=== PATIENT | female | born 1965 | race Caucasian/White ===

== ENCOUNTER 2016-07-30 16:12 | Emergency (ER) | payer MEDICARE, OTHER ==
--- NOTE | ~2016-07-30 | CR72 ---
[facility] A Service of [facility] & [facility] RADIOLOGY TEXT RESULTS PATIENT: PARKER FLORES LOCATION: [facility] : 65 UNIT #: [id number] AGE: [address]: Da Chand MD SEX: F ORDER DR: [id number] [facility] [address] [place], [place] [address] [id number] E MR#: [id number] Acc #: [id number] NAME: PARKER FLORES : 1965 SEX: F STUDY DATE/TIME: 07/30/2016 15:57 UNIT: [facility] ROOM: STUDY DESCRIPTION: CR Chest Single View Portable Attending Physician: Da Chand M.D. Ordering Physician: Da Chand M.D. Primary Care Physician: Primary Care Physician No MEDICAL IMAGING REPORT This report is preliminary unless electronic signature is present EXAM Portable chest, 07/30/2016 INDICATION Shortness of air, 4 days. FINDINGS A portable view of the chest was obtained. The heart size and vascularity are normal. There is minimal atelectasis in the right base. The bones are normal and the lungs are otherwise clear. IMPRESSION Minimal right base atelectasis, otherwise no active disease. Dictated by... Bon Soler M.D. THIS IS AN ELECTRONICALLY VERIFIED REPORT Bon Soler M.D. at 07/31/2016 9:22 AM KEMAR/benji TD: 07/31/2016 03:06 JOB #: [id number] MEDICAL IMAGING REPORT COPY
--- NOTE | ~2016-07-30 | EKG ---
PATIENT: PARKER FLORES UNIT #: [id number] Ventricular Rate: 112 BPM Atrial Rate: 112 BPM P-R Interval: 140 ms QRS Duration: 76 ms Q-T Interval: 336 ms QTC Calculation(Bezet): 458 ms P [place]: 59 degrees Calculated R [place]: 51 degrees Calculated T [place]: 40 degrees Diagnosis Line: Sinus tachycardia Diagnosis Line: Otherwise normal ECG Diagnosis Line: When compared with ECG of 25-JUN-2016 19:59, Diagnosis Line: No significant change was found Diagnosis Line: Confirmed by MABLE MEHTA MD ([id number]) on 07/31/2016 Diagnosis Line: 5:42:59 PM INTERPRETING MD: JANINE CHRISTIANSEN
[~2016-07-30 16:12] MED LIST: ACETAMINOPHEN PO; ACETAMINOPHEN650 M4 PO; ADVAIR 100-501 EAC1; ADVAIR 100-501 EAC1 IH; ADVAIR 100-501 EAC1 INH; ADVAIR 100-501 EACH IH; ADVAIR 250-501 EACH IH; AL-MAG HYDROX-S30 M1 PO; ALBUTEROL 0.5ML INH; ALBUTEROL MININEB NEB; ALBUTEROL17 GM INH; ASPIRIN EC81 M1; ASPIRIN81 M1 PO; ASPIRIN81 M2 PO; ASPIRIN81 MG PO; ATIVAN PO; ATIVAN0.5 M1 PO; ATIVAN2 M1 PO; AZITHROMYCIN250 MG PO; BENZONATATE PO; CATAPRES0.1 MG PO; COMBIVENT INH14.7 G1 IH; COMBIVENT RESPIM4 GM IH; COMBIVENT14.7 GM INH; DELTASONE20 MG PO; DOXYCYCLINE PO; DUONEB 2.5-0.5 M3 ML NEB; FLAGYL PO; HCTZ PO; HYDRALAZINE HCL10 MG PO; HYDRALAZINE HCL25 MG PO; HYDROCHLOROTHIA25 MG PO; KITABIS PA300 MG/5 M INH; LASIX PO; LEVAQUIN PO; LEVAQUIN750 M1 PO; LEVAQUIN750 MG PO; LOVENOX40 MG/0.4 INJ; MEDROL DOSEPAK4 MG DOB; MEDROL DOSEPAK4 MG PO; MUCINEX D ER T1 EAC1 PO; NORVASC PO; NORVASC10 MG PO; NYSTATIN15 G1 TP; NYSTATIN5 ML PO; OXYCODONE HCL5 M1 PO; OXYGEN; OXYGEN INH; PERCOCET 5/321 UDTAB PO; PERCOCET5/325 PO; PERFOROMIS20 MCG/2 M IH; PREDNISONE PO; PREDNISONE10 MG PO; PROAIR HFA8.5 GM IH; PROAIR HFA8.5 GM INH; PROAIR RESPICL90 MCG INH; PROBIOTIC250 MG PO; PROTONIX PO; PULMICORT0.5 MG/2 M IH; SINGULAIR PO; SOLU-MEDRO40 MG/1 ML INJ; SYMBICORT INH; TAMIFLU75 M1 PO; VANCOMYCIN750 MG/150 IV; VIBRAMYCIN100 M1 PO; [UNRECOGNIZED DRUG - OTHER] NEB
[2016-07-30 16:21] LABS: POC - CKMB 2.1 ng/mL (0.0-7.9); POC - TROPONIN <0.05 ng/mL (<=0.05)
[2016-07-30 16:31] LABS: BASOPHIL% 0.4 % (0-2.5); DIFF IND NO; EOSINOPHIL# 0.2 X10e3 (0-0.7); EOSINOPHIL% 1.7 % (0.0-7.0); HEMOGLOBIN 11.4 gm/dL (12.0-16.0); LYMPHOCYTE% 16.4 % (17.0-45.0); MEAN CELL VOLUME 86.3 FL (83-96); MEAN CORPUSCULAR HEMOGLOBIN 27.2 PG (28-34); MEAN CORPUSCULAR HGB CONC 31.5 g/dL (30-36); MEAN PLATELET VOLUME 7.6 FL (6.5-11.5); MONOCYTE# 0.6 X10e3 (0-1.0); MONOCYTE% 4.7 % (3.0-12.0); NEUTROPHIL# 9.5 X10e3 (1.5-7.1); NEUTROPHIL% 76.8 % (40-75); PLATELET COUNT 231 X10e3 (140-420); RED BLOOD COUNT 4.18 X10e (3.90-5.30); RED CELL DISTRIBUTION WIDTH 18.4 % (11.0-15.5); WHITE BLOOD COUNT 12.4 X10e3 (4.0-10.5)
[2016-07-30 16:56] LABS: ALBUMIN SERUM 3.9 g/dL (3.5-5.0); ALKALINE PHOSPHATASE 117 U/L (32-92); ALT (SGPT) 34 U/L (10-40); AST (SGOT) 51 U/L (10-42); BILIRUBIN, DIRECT 0.1 mg/dL (0.0-0.2); BILIRUBIN,INDIRECT 0.6 mg/dL (0.0-0.9); BILIRUBIN,TOTAL 0.7 mg/dL (0.2-2.0); BLOOD UREA NITROGEN 8 mg/dL (9-23); CALCIUM SERUM 9.1 mg/dL (8.4-10.2); CARBON DIOXIDE 26 mmol/L (22-31); CHLORIDE 99 mmol/L (100-111); CREATININE SERUM 0.5 mg/dL (0.6-1.4); GLOM FILT RATE Estimated ABOVE60 mL/min (>60); GLUCOSE FASTING 112 mg/dL (70-110); POTASSIUM 3.7 mmol/L (3.5-5.1); PROTEIN TOTAL SERUM 7.6 g/dL (6.0-8.3); SODIUM 136 mmol/L (135-145)
== END 2016-07-30 20:20 | disposition home or self-care (01) ==
LOC: CED 16:12
PROVIDERS: Emergency Medicine
DX: J41.1 Mucopurulent chronic bronchitis (principal); J44.9 Chronic obstructive pulmonary disease, unspecified; Z88.1 Allergy status to other antibiotic agents; Z88.8 Allergy status to other drugs, medicaments and biological substances; Z79.82 Long term (current) use of aspirin; Z79.899 Other long term (current) drug therapy
CPT/HCPCS: 36415; 71010; 80048; 80076; 82553; 84484; 85025; 93005; 94640; 99284

== ENCOUNTER 2016-08-25 22:32 | Emergency (ER) | payer MEDICARE, OTHER ==
--- NOTE | ~2016-08-25 | EKG ---
PATIENT: PARKER FLORES UNIT #: [id number] Ventricular Rate: 101 BPM Atrial Rate: 101 BPM P-R Interval: 142 ms QRS Duration: 80 ms Q-T Interval: 368 ms QTC Calculation(Bezet): 477 ms P [place]: 62 degrees Calculated R [place]: 31 degrees Calculated T [place]: 41 degrees Diagnosis Line: Sinus tachycardia Diagnosis Line: Right atrial enlargement Diagnosis Line: Borderline ECG Diagnosis Line: No previous ECGs available Diagnosis Line: Confirmed by ISA JANE MD ([id number]) on 08/26/2016 Diagnosis Line: 10:09:22 PM INTERPRETING MD: BUCK CHRISTIANSEN
--- NOTE | ~2016-08-25 | CR72 ---
[facility] A Service of [facility] & [facility] RADIOLOGY TEXT RESULTS PATIENT: PARKER FLORES LOCATION: [facility] : 65 UNIT #: [id number] AGE: [address]: Da Chand MD SEX: F ORDER DR: [id number] [facility] [address] [place], [place] [address] [id number] E MR#: [id number] Acc #: [id number] NAME: PARKER FLORES : 1965 SEX: F STUDY DATE/TIME: 08/25/2016 20:48 UNIT: [facility] ROOM: STUDY DESCRIPTION: CR Chest Single View Portable Attending Physician: Da Chand M.D. Ordering Physician: Da Chand M.D. Primary Care Physician: Primary Care Physician No MEDICAL IMAGING REPORT This report is preliminary unless electronic signature is present EXAM Portable chest. HISTORY Cough, congestion, shortness of air beginning 4 days ago. FINDINGS Portable view of the chest demonstrates low lung volumes. There is cardiomegaly with prominence of the pulmonary vascular and interstitium which may reflect early CHF. No dense consolidation and no sizeable effusions. No invasive lines identified. The patient does appear to have a tracheostomy appliance in place. No pneumothorax. Dictated by... Dwain Medina M.D. THIS IS AN ELECTRONICALLY VERIFIED REPORT Dwain Medina M.D. at 08/26/2016 11:00 PM ANNELISE/benji TD: 08/26/2016 00:21 JOB #: [id number] MEDICAL IMAGING REPORT Page 1 of 1 COPY
[2016-08-25 20:44] LABS: BASOPHIL% 0.5 % (0-2.5); EOSINOPHIL# 0.2 X10e3 (0-0.7); EOSINOPHIL% 2.9 % (0.0-7.0); HEMATOCRIT 33.2 % (35.0-45.0); HEMOGLOBIN 10.7 gm/dL (12.0-16.0); LYMPHOCYTE# 1.7 X10e3 (1.0-3.5); MEAN CELL VOLUME 84.2 FL (83-96); MEAN CORPUSCULAR HGB CONC 32.1 g/dL (30-36); MEAN PLATELET VOLUME 7.9 FL (6.5-11.5); MONOCYTE# 0.5 X10e3 (0-1.0); MONOCYTE% 6.3 % (3.0-12.0); NEUTROPHIL# 4.8 X10e3 (1.5-7.1); NEUTROPHIL% 66.3 % (40-75); PLATELET COUNT 169 X10e3 (140-420); RED BLOOD COUNT 3.95 X10e (3.90-5.30); RED CELL DISTRIBUTION WIDTH 17.5 % (11.0-15.5); WHITE BLOOD COUNT 7.3 X10e3 (4.0-10.5)
[2016-08-25 20:47] LABS: DIFF IND NO
[2016-08-25 21:02] LABS: BUN/CREATININE RATIO 8.33; CALCIUM SERUM 8.4 mg/dL (8.4-10.2); CREATININE SERUM 0.6 mg/dL (0.6-1.4); GLOM FILT RATE Estimated 106.3 mL/min (>60)
[2016-08-25 21:11] LABS: POC - CKMB 1.3 ng/mL (0.0-7.9); POC - TROPONIN <0.05 ng/mL (<=0.05)
== END 2016-08-25 23:17 | disposition home or self-care (01) ==
LOC: CED 22:32
PROVIDERS: Emergency Medicine
DX: J41.1 Mucopurulent chronic bronchitis (principal); Z88.8 Allergy status to other drugs, medicaments and biological substances; Z79.899 Other long term (current) drug therapy; Z87.891 Personal history of nicotine dependence
CPT/HCPCS: 71010; 80048; 82553; 84484; 85025; 93005; 94640; 99284

== ENCOUNTER 2016-12-09 13:56 | Inpatient (IN) | payer MEDICARE, OTHER ==
[~2016-12-09] VITALS: Ht 162.6 cm; Wt 126.2 kg
--- NOTE | ~2016-12-09 | EKG ---
PATIENT: PARKER FLORES UNIT #: [id number] Ventricular Rate: 118 BPM Atrial Rate: 118 BPM P-R Interval: 154 ms QRS Duration: 76 ms Q-T Interval: 332 ms QTC Calculation(Bezet): 465 ms P [place]: 65 degrees Calculated R [place]: 40 degrees Calculated T [place]: 39 degrees Diagnosis Line: Sinus tachycardia Diagnosis Line: Low voltage QRS Diagnosis Line: Septal infarct , age undetermined Diagnosis Line: Abnormal ECG Diagnosis Line: When compared with ECG of 25-AUG-2016 21:22, Diagnosis Line: Septal infarct is now Present Diagnosis Line: Confirmed by ROBERT GARCIA MD ([id number]) on Diagnosis Line: 12/09/2016 5:11:37 PM INTERPRETING MD: JOSE CHRISTIANSEN
--- NOTE | ~2016-12-09 | HP ---
Unit #: [id number] #: [id number] Patient: PARKER FLORES [id number] [facility] [address] [place], [place] [address] [id number] I MR#: [id number] NAME: PARKER FLORES ROOM: [facility] Age: 51 Sex: F Admission Date: 12/09/2016 : 1965 Attending Physician: Juan Nash M.D. Primary Care Physician: Caro Atwood M.D. HISTORY AND PHYSICAL CHIEF COMPLAINT Shortness of breath. HISTORY OF PRESENT ILLNESS 51-year-old female who has vocal cord issues and has chronic tracheostomy, followed by [facility]NT. Approximately three weeks ago she fell and broke her leg with a very complicated fracture. She has been at [facility] and that has been surgically corrected. Apparently she had significant hypoxemia and with her repeated hospitalizations it was felt that she would benefit from AVAPS at night via her tracheostomy. This was arranged by [facility]. Unfortunately she has not been using it. She says the alarms keep going off. Apparently she was just discharged two days ago. She also had her trach changes because of inspissated secretions. She had increasing shortness of breath and presented here to the emergency room. Chest x-ray was unremarkable. CT angiogram was unremarkable. She was placed in the ICU for fear of possible needle for mechanical ventilatory support; however, that was not needed and in fact AVAPS was not even used because I was told we didn't have the appropriate adaptor. PAST MEDICAL HISTORY 1. 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 2. Hypertension. 3. Remote spontaneous pneumothorax. 4. Remote pulmonary embolism. 5. History of hypertension. 6. History of Pseudomonas tracheal bronchitis. MEDICATIONS AT HOME According to a med rec sheet, hydrocodone, nebulized bronchodilators with DuoNeb, Coreg, Effexor, lorazepam, oxycodone, and hydrocodone, Norvasc, Symbicort, aspirin, Zyban. ALLERGIES Lisinopril, morphine, vancomycin. SOCIAL HISTORY Remote smoker. She does live alone, but with a friend, but she says "he is always at work and I'm alone a lot." She is actually asking for possible rehab/penitentiary placement. FAMILY HISTORY Unit #: [id number] #: [id number] Patient: PARKER FLORES No familial lung disease. REVIEW OF SYSTEMS She still has thick tracheal secretions. No hemoptysis. No fever, chills, weight loss. No chest pain, palpitations, abdominal pain, melena, or hematochezia. She does have some nausea. No leg pain swelling. No focal weakness, paresthesias. She does have a boot in place. Limiting her mobility. PHYSICAL EXAMINATION GENERAL: Examination reveals the patient who is in no acute distress, sitting at the side of the bed. (1) oxygen. VITAL SIGNS: She is afebrile. Pulse is 112, respiratory rate 25, blood pressure 165/78. She is 5'4", 286, BMI is 49. HEENT: Pupils equal, round, reactive to light. Sclerae are anicteric. Head atraumatic. NECK: Supple. No supraclavicular or cervical adenopathy appreciated. She has a trach in place. CHEST: Equal breath sounds. No wheeze, stridor or consolidation. CARDIAC: Regular rate and rhythm. No pathologic murmur, rub or gallop. ABDOMEN: Soft, nontender. No hepatomegaly, rebound. EXTREMITIES: No clubbing, cyanosis or edema. She has a boot in place on the left. NEUROLOGIC: Grossly intact. No focal muscle or sensory deficits. DIAGNOSTIC STUDIES LABORATORY EXAMINATION: ABG - pH 7.45, pCO2 36, pO2 62, that was reported on room air. BUN is 6, creatinine 0.5. Lactic acid 2.6. INR normal. Cardiac enzymes normal. White blood cell count 10, hemoglobin 10.5, platelet count 266. Blood cultures were not performed. Sputum has been obtained and shows no organisms on gram stain, culture pending. IMAGING STUDIES: Chest x-ray unremarkable. CT angiogram unremarkable but it did have motion artifact. Distal PE cannot be ruled out but again my clinical suspicion is such it is virtually 0. The test was ordered by the ER. CARDIOLOGY STUDIES: EKG - sinus tachycardia. IMPRESSION 1. Possible acute on chronic respiratory failure, although not clearly documented. 2. Shortness of breath, possible anxiety component. 3. Noncompliance. 4. Chronic trach. 5. Chronic obstructive pulmonary disease. 6. History of Pseudomonas tracheobronchitis. 7. Hypertension. 8. Possible poor living conditions/noncompliance, possible contributing to her multiple hospitalizations. 9. Recent fall with leg fracture treated at [facility]. PLAN Maximize pulmonary function. I do not think she needs ICU observation. She will be transferred to Telemetry. Compliance has been stressed. We will ask her AVAPS to be brought in from home for her use, so we can observe her use and issues. We will also ask the [employer] to educate Unit #: [id number] #: [id number] Patient: PARKER FLORES. We will ask social service and supply planner to see the patient for possible rehab/long-term living conditions. Dictated by Juan Nash M.D. FROILAN/kedar TD: 12/10/2016 11:18 JOB #: [id number] CC: [facility] HISTORY AND PHYSICAL Page 1 of 1 X Juan Nash MD HISTORY AND PHYSICAL
--- NOTE | ~2016-12-09 | DS ---
Unit #: [id number] #: [id number] Patient: PARKER FLORES [id number] [address] [id number] [facility]. [place], [place] [address] [id number] I MR#: [id number] NAME: PARKER FLORES ROOM: 577 Age: 51 Sex: F Admission Date: 12/09/2016 : 1965 Discharge Date: 12/12/2016 Attending Physician: Juan Nash M.D. Primary Care Physician: Caro Atwood M.D. DISCHARGE SUMMARY DISCHARGE DIAGNOSES 1. Shortness of breath, multifactorial. 2. Chronic obstructive pulmonary disease with exacerbation. 3. Chronic respiratory failure with oxygen with exertion and at night. She is also on AVAPS at night, although she has been noncompliant. 4. Hypertension. 5. History of pseudomonas tracheal bronchitis, now sputum is normal merly. 6. Remote history of spontaneous pneumothorax. 7. Remote history of pulmonary embolism. DISCHARGE MEDICATIONS 1. Augmentin 875 mg twice a day for four more days. 2. Prednisone 40 mg daily for five days. 3. Wellbutrin 300 mg daily. 4. Effexor 75 mg daily. 5. Symbicort two puffs twice a day. 6. Nebulized bronchodilators as needed. 7. Ativan 0.5 mg t.i.d. p.r.n. 8. Coreg 3.125 mg twice a day. 9. Norvasc 10 mg daily. 10. Aspirin 81 mg daily. 11. Pepcid 20 mg twice a day. DIET Weight loss has been suggested. ACTIVITY Room air saturations were 95%, so it is safe to be off oxygen at rest but I have suggested oxygen with any exertion. She does have a portable system at home. She needs to use her AVAPS at night with sleep with oxygen in line and this has been discussed. Please note that [employer] has reviewed the machine use with her as well as checked the machine but she still is somewhat confused. I will ask the DME to talk to her again. DESCRIPTION OF HOSPITALIZATION The patient was admitted through the emergency room. There was some question in need for mask ventilation, and she was sent to the ICU. She actually never received any mask ventilation whatsoever and was transferred to the floor. She is not using her AVAPS at home. Please note, AVAPS was ordered by [facility]. She had a recent hospitalization with a fall and leg fracture. She has been noncompliant since discharge. AVAPS generally is very easy to use with no need to intervene with any of the settings, so I am not sure what the problem is. Unit #: [id number] #: [id number] Patient: PARKER FLORES It should easily be connected to her trach, turn the machine on and that should be it. Once again, we will have her [employer] to check the machine and educate the patient. The remainder of her hospitalization basically was maximizing her pulmonary function with IV steroids. Sputum grew normal merly. She will be discharged on her continued inhaled bronchodilators, controlling agents, a brief course of prednisone and antibiotics. She will follow up with Dr. Atwood for general medical care, Dr. Nash for her pulmonary needs, and [facility]NT as scheduled. Please note, she has been noncompliant with office followup. I believe transportation is a major issue for her. She did have some mild anemia with a hemoglobin of 10.5 and it was stable. I have suggested her followup with her primary physician for investigation if it has not already been performed. In the meantime, she will be continued on Pepcid. Dictated by... Juan Nash M.D. FROILAN/alla TD: 12/13/2016 10:31 JOB #: [id number] DISCHARGE SUMMARY Page 1 of 1 X Juan Nash MD X DISCHARGE SUMMARY
--- NOTE | ~2016-12-09 | CT16 ---
[facility] A Service of [facility] & [facility] RADIOLOGY TEXT RESULTS PATIENT: PARKER FLOERS LOCATION: [address] : 65 UNIT #: [id number] AGE: [address]: Juan Nash MD SEX: F ORDER DR: [id number] [facility] [address] [place], [place] [address] [id number] I MR#: [id number] Acc #: [id number] NAME: PARKER FLORES : 1965 SEX: F STUDY DATE/TIME: 12/09/2016 17:57 UNIT: [facility] ROOM: [facility] STUDY DESCRIPTION: CT Angio Chest for PE Attending Physician: Juan Nash M.D. Ordering Physician: Milton Reyna D.O. Primary Care Physician: Caro Atwood M.D. MEDICAL IMAGING REPORT This report is preliminary unless electronic signature is present EXAM CT angiography chest for PE. HISTORY Short of air. Chest pain today. COPD, TIA, trachea, acid reflux, C. diff, restless legs syndrome, heart valve abnormal. TECHNIQUE CT pulmonary angiography performed with intravenous administration of 100 mL Isovue-370. Study repeated due to initial poor timing of the contrast bolus. Three-dimensional reconstructions performed through the pulmonary arteries. This CT exam was performed with one or more of the following radiation dose reduction techniques: Automatic exposure control, adjustment of mA and/or kV according to patient size, and iterative reconstruction. COMPARISON 12/10/2015. FINDINGS The patient has a tracheostomy tube which appears satisfactorily positioned. There is no axillary, mediastinal or hilar adenopathy. The visualized thyroid is unremarkable. There is mild and stable cardiac enlargement. No pleural effusions. Fatty infiltration of liver unchanged. Limited view of gallbladder suggests gallstone. Similar appearance on prior study. There is no biliary ductal dilatation. The spleen, visualized portions of pancreas, adrenal glands and kidneys are unremarkable. No upper abdominal adenopathy. Esophagus and visualized stomach, small bowel and colon unremarkable. Assessment of the pulmonary parenchyma significantly degraded by respiratory motion artifact. Linear scarring or atelectasis in the bilateral upper lung zones. Similar appearance on prior study. There is a subtle increase in peripheral subpleural interstitial markings which could be in the upper lung zones [facility] A Service of [facility] RADIOLOGY TEXT RESULTS PATIENT: PARKER FLORES LOCATION: [facility] : 65 UNIT #: [id number] AGE: [address]: Juan Nash MD SEX: F ORDER DR: which could be in part artifactual due to motion and in part a reflection of mild interstitial edema. There are areas of linear and band-like atelectasis in the bilateral lung bases left greater than right also similar in appearance to prior study. No suspicious nodule. No dense airspace disease. Despite repetition of the examination, the study is nondiagnostic for complete assessment of pulmonary arteries. On the second group of images, there is no compelling evidence of central pulmonary emboli but there is extensive respiratory motion artifact degrading upper and lower lung zone evaluation more pronounced at the lower lung zones. Presence or absence of mid to lower lung zone segmental or subsegmental pulmonary emboli cannot be determined on basis of this examination. If the patient is a candidate for additional iodinated contrast material, additional repeat imaging could be considered. Alternatively ventilation-perfusion radionuclide lung scan could be considered. No aortic aneurysm or dissection suggested. The bony structures show degenerative changes in spine. No acute-appearing bony abnormality. IMPRESSION 1. Despite repetition of the examination, the study is nondiagnostic for complete assessment of the pulmonary arteries due to a combination of poor contrast bolus timing and extensive respiratory motion artifact. No central pulmonary emboli are seen but beyond the level of the proximal lobar and segmental pulmonary arteries, the study is felt to be nondiagnostic. Presence or absence of segmental or subsegmental pulmonary emboli particularly in the lower lung zones cannot be confidently evaluated on basis of this examination. If there is ongoing concern for pulmonary thromboembolic disease and if the patient is a candidate for additional iodinated contrast material, a second repeat examination could be considered. Alternatively ventilation-perfusion radionuclide lung scan could be considered. 2. No aortic aneurysm or dissection. 3. Stable mild cardiac enlargement. 4. Respiratory motion artifact degrades assessment of the pulmonary parenchyma. There is a subtle increase in fine linear interstitial markings in the periphery of the upper lung zones bilaterally. Some of this could be artifactual in nature and related to motion. The possibility of mild interstitial edema could be considered. 5. Areas of chronic linear scarring and atelectasis in the bilateral upper and lower lung zones not significantly changed from prior examination. 6. No dense airspace disease. 7. Tracheostomy tube appears in good position. 8. No acute abnormality suggested in the upper abdomen. Fatty infiltration of liver. Partially visualized gallstone. No biliary ductal dilatation. Dictated by... Nayan Bhagat M.D. [facility] A Service of [facility] RADIOLOGY TEXT RESULTS PATIENT: PARKER FLORES LOCATION: [facility] CIC2-10 : 65 UNIT #: [id number] AGE: [address]: Juan Nash MD SEX: F ORDER DR: THIS IS AN ELECTRONICALLY VERIFIED REPORT Nayan Bhagat M.D. at 12/10/2016 6:04 PM Jin TD: 12/10/2016 07:25 JOB #: [id number] MEDICAL IMAGING REPORT Page 1 of 1 COPY
--- NOTE | ~2016-12-09 | CR72 ---
[facility] A Service of [facility] RADIOLOGY TEXT RESULTS PATIENT: PARKER FLORES [facility] : 65 UNIT #: [id number] AGE: [address]: Juan Nash MD SEX: F ORDER DR: [id number] [facility] [address] [place], [place] [address] [id number] I MR#: [id number] #: [id number] NAME: PARKER FLORES : 1965 SEX: F STUDY DATE/TIME: 12/09/2016 14:24 UNIT: [facility] ROOM: [facility] STUDY DESCRIPTION: CR Chest Single View Portable Attending Physician: Prince Ralph M.D. Ordering Physician: Milton Reyna D.O. Primary Care Physician: Caro Atwood M.D. MEDICAL IMAGING REPORT This report is preliminary unless electronic signature is present EXAM Portable chest HISTORY Shortness of air and chest pain, onset today. History of breath. Patient has a trach tube. COMPARISON 08/25/2016. FINDINGS Trach tube appears in satisfactory position and alignment. Cardiomegaly with prominence of the pulmonary vascularity and interstitium may reflect early CHF. No dense airspace disease. No sizeable effusions. Mild aortic atherosclerotic changes. Osseous structures unremarkable. Dictated by... Dwain Medina M.D. THIS IS AN ELECTRONICALLY VERIFIED REPORT Dwain Medina M.D. at 12/11/2016 8:06 AM ANNELISE/elmer TD: 12/09/2016 21:42 JOB #: [id number] MEDICAL IMAGING REPORT Page 1 of 1 COPY
--- NOTE | ~2016-12-09 | BMI ---
[facility] Nutrition Therapy DATE: 12/10/16 Patient: PARKER FLORES Physician: CARYL Address: [address] [place] [address] Room/Bed: [address], Zip: [place] [address] Admit Date: 12/09/16 Date of : [birth year] Height: 5 4 Weight: 286 130 HIGH BMI NOTE: DX: 51 y/o female admitted with COPD exacerbation ANTHROPOMETRICS: Ht: 64", Wt: 130 kg, BMI: 49 (stage III obese) DIET: Regular INTERVENTION: Restricted diet, meds/fluids per MD RECOMMENDATIONS: Consider changing diet to healthy heart due to PMH and to promote a gradual weight loss towards a healthy BMI range. Respectfully, Francoise Jaramillo RD, LD [facility] cc: client file
[2016-12-09 14:19] LABS: ARTERIAL BLD GAS O2 SATURATION 87.3 % (90.0-100.0); ARTERIAL BLOOD GAS CARBOXY HB 1.4 %sat (0.0-9.0); ARTERIAL BLOOD GAS HCO3 25.5 mmol/L; ARTERIAL BLOOD GAS MET HB 0.6 %sat (0.0-2.0); ARTERIAL BLOOD GAS PCO2 36.5 mmHg (35.0-45.0); ARTERIAL BLOOD GAS pH 7.452 (7.350-7.450)
[2016-12-09 14:21] LABS: ARTERIAL BLOOD GAS ALLEN TEST NORMAL; ARTERIAL BLOOD GAS ART SITE RIGHT RADIAL; ARTERIAL BLOOD GAS PO2 62.4 mmHg (80.0-100); ARTERIAL DRAW? YES
[2016-12-09 14:51] LABS: POC - CKMB 1.7 ng/mL (0.0-7.9); POC - TROPONIN <0.05 ng/mL (<=0.05)
[2016-12-09 15:20] LABS: BASOPHIL% 0.4 % (0-2.5); EOSINOPHIL# 0.2 X10e3 (0-0.7); EOSINOPHIL% 1.6 % (0.0-7.0); HEMATOCRIT 32.2 % (35.0-45.0); HEMOGLOBIN 10.5 gm/dL (12.0-16.0); LYMPHOCYTE# 2.5 X10e3 (1.0-3.5); LYMPHOCYTE% 25.2 % (17.0-45.0); MEAN CORPUSCULAR HEMOGLOBIN 26.1 PG (28-34); MEAN CORPUSCULAR HGB CONC 32.7 g/dL (30-36); MEAN PLATELET VOLUME 6.6 FL (6.5-11.5); MONOCYTE# 0.5 X10e3 (0-1.0); MONOCYTE% 4.9 % (3.0-12.0); NEUTROPHIL# 6.8 X10e3 (1.5-7.1); NEUTROPHIL% 67.9 % (40-75); PLATELET COUNT 266 X10e3 (140-420); RED BLOOD COUNT 4.02 X10e (3.90-5.30); RED CELL DISTRIBUTION WIDTH 16.8 % (11.0-15.5)
[2016-12-09] MEDS ORDERED: PATIENT'S PHARMACY (15:20)
[2016-12-09] MEDS ORDERED: ATIVAN PO (15:21)
[2016-12-09] MEDS ORDERED: COREG3.125 MG PO (15:21)
[2016-12-09] MEDS ORDERED: EFFEXOR XR75 MG PO (15:21)
[2016-12-09] MEDS ORDERED: HYDROCODON-ACE1 EAC7 PO (15:21)
[2016-12-09] MEDS ORDERED: IPRATR-ALBUTEROL3 ML NEB (15:21)
[2016-12-09] MEDS ORDERED: OXYCODONE HCL5 MG PO (15:22)
[2016-12-09 15:23] LABS: INR 1.1; PROTHROMBIN TIME (PATIENT) 11.7 SECONDS (10.0-11.7)
[2016-12-09 15:24] LABS: DIFF IND NO
[2016-12-09] MEDS ORDERED: NORVASC10 MG PO (15:32)
[2016-12-09] MEDS ORDERED: SYMBICORT INH (15:33)
[2016-12-09] MEDS ORDERED: ASPIRIN81 M2 PO (15:33)
[2016-12-09] MEDS ORDERED: BUPROPION XL300 M1 PO (15:33)
[2016-12-09 15:38] LABS: ALBUMIN SERUM 3.8 g/dL (3.5-5.0); BILIRUBIN, DIRECT 0.1 mg/dL (0.0-0.2); BILIRUBIN,INDIRECT 0.6 mg/dL (0.0-0.9); BILIRUBIN,TOTAL 0.7 mg/dL (0.2-2.0); CALCIUM SERUM 8.5 mg/dL (8.4-10.2); CREATININE SERUM 0.5 mg/dL (0.6-1.4); GLOM FILT RATE Estimated 112.1 mL/min (>60); POTASSIUM 3.6 mmol/L (3.5-5.1); PROTEIN TOTAL SERUM 8.1 g/dL (6.0-8.3)
[2016-12-09 16:56] LABS: POC - CKMB 1.8 ng/mL (0.0-7.9); POC - TROPONIN <0.05 ng/mL (<=0.05)
[2016-12-12] MEDS ORDERED: AUGMENTIN PO (14:12)
[2016-12-12] MEDS ORDERED: DELTASONE20 MG PO (14:14)
[2016-12-12] MEDS ORDERED: FAMOTIDINE PO (14:29)
== END 2016-12-12 18:30 | disposition home or self-care (01) | DRG 189 ==
LOC: CED 13:56 → CEDOF 16:30 → CICCU2 17:10 → CED 17:10 → CICCU2 21:32 → CEDOF 21:32 → CICCU2 21:32 → C5C 12-10 20:45
PROVIDERS: Emergency Medicine
PROC: B32TYZZ Computerized Tomography (CT Scan) of Left Pulmonary Artery using Other Contrast (ICD-10-PCS; principal; 2016-12-09)
PROC: B32SYZZ Computerized Tomography (CT Scan) of Right Pulmonary Artery using Other Contrast (ICD-10-PCS; 2016-12-09)
DX: J96.20 Acute and chronic respiratory failure, unspecified whether with hypoxia or hypercapnia (principal); Z93.0 Tracheostomy status; J44.1 Chronic obstructive pulmonary disease with (acute) exacerbation; Z68.42 Body mass index [BMI] 45.0-49.9, adult; I10 Essential (primary) hypertension; Z91.19 Patient's noncompliance with other medical treatment and regimen; Z87.891 Personal history of nicotine dependence; S82.90XD Unspecified fracture of unspecified lower leg, subsequent encounter for closed fracture with routine healing; W19.XXXD Unspecified fall, subsequent encounter; Z88.1 Allergy status to other antibiotic agents; Z88.5 Allergy status to narcotic agent; Z88.8 Allergy status to other drugs, medicaments and biological substances; E66.01 Morbid (severe) obesity due to excess calories
CPT/HCPCS: 36415; 36600; 71010; 71275; 80048; 80076; 80200; 82553; 82803; 83605; 83880; 84484; 85025; 85610; 85730; 87070; 87205; 93005; 94640; 94760; 96374; 99285; J1650; J1956; J2543; J2920; J2930; J3260; Q9967

== ENCOUNTER 2017-01-07 09:59 | Inpatient (IN) | payer MEDICARE, OTHER ==
[~2017-01-07] VITALS: Ht 165.1 cm; Wt 120.6 kg
--- NOTE | ~2017-01-07 | DS ---
Unit #: [id number] #: [id number] Patient: Parker Joseph [id number] [address] [place], [place] [address] [id number] I MR#: [id number] NAME: PARKER JOSEPH ROOM: 569 Age: 51 Sex: F Admission Date: 01/07/2017 : 1965 Discharge Date: 01/14/2017 Attending Physician: Juan Nash M.D. Primary Care Physician: Caro Atwood M.D. DISCHARGE SUMMARY DISCHARGE DIAGNOSES 1. Acute on chronic respiratory failure. 2. Chronic obstructive pulmonary disease exacerbation. 3. Serratia marcescens bronchitis. 4. Chronic tracheostomy, secondary to vocal cord issues. 5. Obstructive sleep apnea. 6. Hypertension. 7. Remote history of spontaneous pneumothorax. 8. Remote history of pulmonary embolus. 9. Hypertension. 10. Reformed smoker. DISCHARGE MEDICATIONS 1. Symbicort 160/4.5 two puffs b.i.d. per trach. 2. DuoNeb Mini neb every four to six hours. 3. She will receive Depo Medrol 80 mg IM prior to discharge. 4. Septra DS one p.o. b.i.d. x5 days. 5. Bupropion 300 mg daily. 6. Effexor 75 mg daily. 7. Lorazepam 0.5 mg b.i.d. as needed. 8. Coreg 3.125 mg daily. 9. Norvasc 10 mg daily. 10. Pepcid 20 mg daily. 11. Aspirin 81 mg daily. 12. Hydrocodone APAP 5/325 one every six hours as needed. 13. Saline nasal spray as needed. 14. O2 per trach tent. FOLLOWUP She will receive house call service at home and followup with Dr. Nash in January per her regular visit. HOSPITAL COURSE Patient admitted with exacerbation of COPD, acute on chronic respiratory failure. Chest x-ray showed no infiltrate. She was treated with inhaled bronchodilators, parenteral steroids, and covered with antibiotics. Sputum grew Serratia marcescens sensitive to Septra, cefepime, and Levaquin. She had been treated initially until sputum culture came back with Zosyn. She has improved. She will be discharged home on the above-mentioned medications to follow up with Dr. Nash as an outpatient. She has been instructed to follow a diabetic type diet. Her last three blood sugars were 133, 144, and 202. Her last hematocrit was 30.9 which was stable from August of this year. She will receive her trach care supplies from house calls. Unit #: [id number] #: [id number] Patient: Parker Joseph Dictated by... Isabell Max/alla TD: 01/14/2017 12:55 JOB #: [id number] CC: Juan Nash M.D. DISCHARGE SUMMARY Page 1 of 1 X Raf Perez MD X DISCHARGE SUMMARY
--- NOTE | ~2017-01-07 | HP ---
Unit #: [id number] #: [id number] Patient: Parker Joseph [id number] [address] [place], [place] [address] [id number] E MR#: [id number] NAME: PARKER JOSEPH ROOM: Age: 51 Sex: F Admission Date: 01/07/2017 : 1965 Attending Physician: Eligio Martinez M.D. Primary Care Physician: Caro Atwood M.D. HISTORY AND PHYSICAL HISTORY OF PRESENT ILLNESS Ms. Joseph is a 51-year-old white female followed by Dr. Juan Nash in our office from a pulmonary perspective and from a general medicine perspective by Dr. Atwood. She presented with increasing shortness of breath, wheezing and sputum production which was thicker and more green to yellow than normal. She had had no definite fevers or chills. She did have some chest pain from coughing in her anterior chest. She denied any nausea or vomiting or acute diarrhea. PAST MEDICAL HISTORY 1. 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 2. Chronic obstructive pulmonary disease. 3. Obstructive sleep apnea. 4. Documented desaturations at night. She is on Trilogy home ventilator. 5. History of hypertension. 6. Remote history of spontaneous pneumothorax. 7. Remote history of pulmonary embolus. 8. History of hypertension. 9. History of pseudomonas tracheal bronchitis. SOCIAL HISTORY Reformed smoker. Lives with a friend. FAMILY HISTORY No familial lung disease. ALLERGIES Lisinopril, morphine and vancomycin. HOME MEDICATIONS Listed medications include 1. Hydrocodone/APAP 10/325 mg 1 q.4-6 h. p.r.n. 2. Duo-Neb nebulizer q.4-6 h. 3. Coreg 3.125 mg b.i.d. 4. Effexor 75 mg daily. 5. Lorazepam 0.5 mg b.i.d. p.r.n. 6. Norvasc 10 mg daily. 7. Symbicort 160/4.5 two puffs b.i.d. 8. Aspirin 81 mg daily. 9. Zyban 300 mg daily. 10. Augmentin 875 mg b.i.d. 11. Deltasone 40 mg daily. 12. Pepcid 20 daily. Unit #: [id number] #: [id number] Patient: Parker Joseph REVIEW OF SYSTEMS CONSTITUTIONAL: No fevers, chills. HEENT: No rhinorrhea, nasal congestion. PULMONARY: As noted. CARDIAC: As noted. GI: No nausea or vomiting. She does get diarrhea with antibiotics. : No hematuria or dysuria. ENDOCRINE: No polyuria or polydipsia. HEMATOLOGIC: No easy bruising or bleeding. SKIN: Does have some history of bed bugs. MUSCULOSKELETAL: Had a fractured leg/ankle on the left and is in a boot. Had surgical pins placed. NEUROLOGIC: No unilateral weakness or numbness. PHYSICAL EXAMINATION GENERAL: White female in no distress. Lying in bed. Tracheostomy. VITALS: Blood pressure 143/91, pulse 107, respiratory rate 25, temperature 98.7, O2 saturations 95% on trach tent. HEENT: Normocephalic, atraumatic. Pupils equal, round and reactive. Sclerae nonicteric. Nasal passages patent. Posterior pharynx clear. Mallampati 3-4. Tracheostomy in place. NECK: Supple. No cervical or supraclavicular lymphadenopathy. LUNGS: Expiratory wheezes and rhonchi. HEART: Heart sounds distant. Regular rate and rhythm. Could not appreciate murmur, rub or gallop. ABDOMEN: Nontender. Bowel sounds present. No hepatosplenomegaly. EXTREMITIES: Without clubbing, cyanosis or significant edema. She has a boot on her left lower extremity. Peripheral pulses present. NEUROLOGIC: Awake, alert and oriented times three. Moves all extremities symmetric. Affect calm. SKIN: Warm and dry. DIAGNOSTIC STUDIES LABORATORY: BMP unremarkable. Glucose 160. Coags normal. White blood cell count 6.4, hematocrit 31.9, platelets normal. Previous hematocrit in November was 32.2. ASSESSMENT 1. Acute on chronic respiratory failure. 2. Chronic obstructive pulmonary disease exacerbation. 3. Acute bronchitis. 4. Mucus plugging. 5. Hypertension. 6. History of remote PE. 7. Other problems as mentioned above. PLAN Inhaled bronchodilators, IV Solu-Medrol, cover with antibiotics for bronchitis. Pulmonary hygiene for mucus plugs. Hypertonic saline. DVT prophylaxis. 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 Will have the patient checked for bed bugs. Dictated by Raf Perez M.D. Unit #: [id number] #: [id number] Patient: Parker Joseph LPM/gz TD: 01/07/2017 15:31 JOB #: [id number] CC: Isabell Eduardo M.D. HISTORY AND PHYSICAL Page 1 of 1 X Raf Perez MD X HISTORY AND PHYSICAL
--- NOTE | ~2017-01-07 | CR63 ---
[facility] A Service of [facility] RADIOLOGY TEXT RESULTS PATIENT: Parker Joseph LOCATION: [facility] : [birth year] UNIT #: [id number] AGE: [address]: Jean Marie Martinez MD SEX: F ORDER DR: [id number] [facility] [address]. [place], [place] [address] [id number] MR#: [id number] Acc #: [id number] NAME: PARKER JOSEPH : 1965 SEX: F STUDY DATE/TIME: 01/08/2017 12:01 UNIT: [facility] ROOM: 2 STUDY DESCRIPTION: CR Chest 2 View Attending Physician: Eligio Martinez M.D. Ordering Physician: Juan Nash M.D. Primary Care Physician: Caro Atwood M.D. MEDICAL IMAGING REPORT This report is preliminary unless electronic signature is present EXAMINATION PA and lateral chest. DATE 01/08/2017 HISTORY 51-year-old female shortness breath, cough, and congestion. Symptoms began 4 days ago. Additional history congestive heart failure, COPD. Remote smoking history, quit 15 years ago. Hypertension. COMPARISON AP portable chest, 01/07/2017. FINDINGS The study is attenuated by body habitus, particularly, the lateral projections. Low volume inspiration. Stable cardiac enlargement. Hazy bibasilar densities, favored to represent mild basilar subsegmental atelectasis. No dense lung consolidation. No pleural effusion or pneumothorax. IMPRESSION 1. Mild bibasilar atelectatic changes. No dense lung consolidation. 2. Right arm approach PICC tip extends into the [id number] SVC. 3. Stable mild cardiac enlargement. 4. Tracheostomy appliance projects over the mid to upper thoracic trachea. Dictated by... Rosibel Willard M.D. THIS IS AN ELECTRONICALLY VERIFIED REPORT [facility] A Service of [facility] RADIOLOGY TEXT RESULTS PATIENT: Parker Joseph LOCATION: [facility] : [birth year] UNIT #: [id number] AGE: [address]: Jean Marie Martinez MD SEX: F ORDER DR: Rosibel Willard M.D. at 01/09/2017 1:54 PM TEMI/armando TD: 01/08/2017 23:12 JOB #: [id number] MEDICAL IMAGING REPORT Page 1 of 1 COPY
--- NOTE | ~2017-01-07 | XA166 ---
[facility] A Service of [facility] RADIOLOGY TEXT RESULTS PATIENT: Parker Joseph LOCATION: [facility] [id number] : [birth year] UNIT #: [id number] AGE: [address]: Jean Marie Martinez MD SEX: F ORDER DR: [id number] [place] [id number] [facility]. [place], [place] [address] [id number] I MR#: [id number] Acc #: [id number] NAME: PARKER JOSEPH : 1965 SEX: F STUDY DATE/TIME: 01/07/2017 14:11 UNIT: [facility] ROOM: [facility] STUDY DESCRIPTION: XA PICC Line Placement WO Port Attending Physician: Jean Marie Martinez Ordering Physician: Caro Atwood M.D. Primary Care Physician: Caro Atwood M.D. MEDICAL IMAGING REPORT This report is preliminary unless electronic signature is present EXAM PICC line placement. INDICATION IV access. PRE-PROCEDURE The procedure was explained to the patient and/or patient energy conservation representative including risks, benefits, potential complications and potential for alternative forms of treatment. Informed consent was obtained, and prior to initiating the procedure a formal timeout procedure was performed. PROCEDURE Using full standard sterile barrier technique, including caps, gowns, gloves, masks, as well as sterile skin preparation and standard sterile draping, the right arm was prepped and draped in the usual fashion, and real-time sterile ultrasound guidance was used to localize an arm vein and to confirm vessel patency. A hard copy ultrasound image was recorded. After local anesthesia with 1% Xylocaine, the brachial vein was punctured using real-time sterile ultrasound guidance, and an 0.018 guidewire was advanced into the superior vena cava, using fluoroscopic guidance. A single-lumen PICC was then measured to 43 cm and deployed with the tip positioned in the superior vena cava. The position of the line was documented with a single radiographic image. The line was secured in place with an adhesive dressing and an antibiotic patch was applied. Total fluoro time was 0.1 minutes. Reference air kerma 10 mGy. IMPRESSION Successful right arm PICC line placement. STS. [facility] A Service of [facility] & [facility] RADIOLOGY TEXT RESULTS PATIENT: Parker Joseph LOCATION: [facility] [id number] : [birth year] UNIT #: [id number] AGE: [address]: Jean Marie Martinez MD SEX: F ORDER DR: Dictated by... Du Medina M.D. THIS IS AN ELECTRONICALLY VERIFIED REPORT Du Medina M.D. at 01/09/2017 7:59 AM CHICA/benji TD: 01/07/2017 22:04 JOB #: [id number] MEDICAL IMAGING REPORT Page 1 of 1 COPY
--- NOTE | ~2017-01-07 | CR72 ---
[facility] A Service of [facility] & [facility] RADIOLOGY TEXT RESULTS PATIENT: Parker Joseph LOCATION: [facility] : [birth year] UNIT #: [id number] AGE: [address]: Jean Marie Martinez MD SEX: F ORDER DR: [id number] [facility] [address] [place], [place] [address] [id number] E MR#: [id number] Acc #: [id number] NAME: PARKER JOSEPH : 1965 SEX: F STUDY DATE/TIME: 01/07/2017 13:22 UNIT: [facility] ROOM: STUDY DESCRIPTION: CR Chest Single View Portable Attending Physician: Eligio Martinez M.D. Ordering Physician: Ed Doctor [id number] [facility] Primary Care Physician: Caro Atwood M.D. MEDICAL IMAGING REPORT This report is preliminary unless electronic signature is present EXAM Portable chest INDICATION Shortness of breath today. COMPARISON 12/09/2016 FINDINGS Tracheostomy tube is stable. Increased atelectasis in both lung bases. No definite acute infiltrate. Heart size stable. IMPRESSION Increased atelectasis within both lung bases. Dictated by... Du Medina M.D. THIS IS AN ELECTRONICALLY VERIFIED REPORT Du Medina M.D. at 01/07/2017 5:29 PM Magnus TD: 01/07/2017 15:09 JOB #: [id number] MEDICAL IMAGING REPORT Page 1 of 1 COPY
--- NOTE | ~2017-01-07 | BMI ---
[facility] Nutrition Therapy DATE: 01/08/17 Patient: Fallon Joseph Physician: IRIAS Address: [address] [place] [address] Room/Bed: [address] [place] [address], Zip: [place] [address] Admit Date: 01/07/17 Date of : [birth year] Height: 5 5 Weight: 350 126.2 HIGH BMI NOTE: DX: 51 Y.O. FEMALE ADMITTED FOR SOB ANTHROPOMETRICS: 5'4", WT: 278# (126 KG), BMI: 47.7 DIET: HEALTHY HEART RECOMMENDATIONS: 1. CONTINUE CURRENT DIET ORDER ABOVE TO PROMOTE GRADUAL WEIGHT LOSS TOWARDS HEALTHY BMI (19.0-25.0) OR +/-10%IBW RD WILL F/U PER PROTOCOL Respectfully, TRINI SMITH MS, RD, LD [facility] cc: client file
--- NOTE | ~2017-01-07 | EKG ---
PATIENT: Fallon Joseph UNIT #: [id number] Ventricular Rate: 105 BPM Atrial Rate: 105 BPM P-R Interval: 158 ms QRS Duration: 78 ms Q-T Interval: 342 ms QTC Calculation(Bezet): 452 ms P [place]: 71 degrees Calculated R [place]: 54 degrees Calculated T [place]: 43 degrees Diagnosis Line: Sinus tachycardia Diagnosis Line: Otherwise normal ECG Diagnosis Line: When compared with ECG of 09-DEC-2016 14:07, Diagnosis Line: Criteria for Septal infarct are no longer Present Diagnosis Line: Confirmed by ISA JANE MD ([id number]) on 01/08/2017 Diagnosis Line: 10:19:24 PM INTERPRETING MD: BUCK CHRISTIANSEN
[~2017-01-07 09:59] MED LIST changes: +AUGMENTIN PO; +BUPROPION XL300 M1 PO; +COREG3.125 MG PO; +EFFEXOR XR75 MG PO; +FAMOTIDINE PO; +HYDROCODON-ACE1 EAC7 PO; +IPRATR-ALBUTEROL3 ML NEB; +OXYCODONE HCL5 MG PO; +PATIENT'S PHARMACY
[2017-01-07 11:04] LABS: BASOPHIL# 0.1 X10e3 (0-0.3); BASOPHIL% 0.9 % (0-2.5); EOSINOPHIL# 0.2 X10e3 (0-0.7); EOSINOPHIL% 3.5 % (0.0-7.0); HEMATOCRIT 31.4 % (35.0-45.0); HEMOGLOBIN 10.2 gm/dL (12.0-16.0); LYMPHOCYTE# 1.8 X10e3 (1.0-3.5); LYMPHOCYTE% 27.8 % (17.0-45.0); MEAN CELL VOLUME 80.9 FL (83-96); MEAN CORPUSCULAR HEMOGLOBIN 26.2 PG (28-34); MEAN CORPUSCULAR HGB CONC 32.4 g/dL (30-36); MEAN PLATELET VOLUME 6.9 FL (6.5-11.5); MONOCYTE# 0.5 X10e3 (0-1.0); MONOCYTE% 7.8 % (3.0-12.0); NEUTROPHIL# 3.8 X10e3 (1.5-7.1); PLATELET COUNT 226 X10e3 (140-420); RED BLOOD COUNT 3.88 X10e (3.90-5.30); RED CELL DISTRIBUTION WIDTH 17.7 % (11.0-15.5); WHITE BLOOD COUNT 6.4 X10e3 (4.0-10.5)
[2017-01-07 11:09] LABS: DIFF IND NO
[2017-01-07 11:17] LABS: INR 1.1; PARTIAL THROMBOPLASTIN TIME 24.9 SECONDS (23.5-31.3); PROTHROMBIN TIME (PATIENT) 11.4 SECONDS (10.0-11.7)
[2017-01-07 11:31] LABS: CALCIUM SERUM 8.3 mg/dL (8.4-10.2); CREATININE SERUM 0.5 mg/dL (0.6-1.4); GLOM FILT RATE Estimated 112.1 mL/min (>60); POTASSIUM 3.8 mmol/L (3.5-5.1)
[2017-01-07 14:53] LABS: POC - CKMB <1.0 ng/mL (0.0-7.9); POC - TROPONIN <0.05 ng/mL (<=0.05)
[2017-01-10 07:17] LABS: CREATININE SERUM 0.5 mg/dL (0.6-1.4); GLOM FILT RATE Estimated 112.1 mL/min (>60); POTASSIUM 3.7 mmol/L (3.5-5.1)
[2017-01-10 07:41] LABS: HEMATOCRIT 30.9 % (35.0-45.0); MEAN CELL VOLUME 80.6 FL (83-96); MEAN CORPUSCULAR HGB CONC 32.3 g/dL (30-36); MEAN PLATELET VOLUME 7.5 FL (6.5-11.5); RED BLOOD COUNT 3.83 X10e (3.90-5.30); RED CELL DISTRIBUTION WIDTH 16.7 % (11.0-15.5); WHITE BLOOD COUNT 9.8 X10e3 (4.0-10.5)
[2017-01-14] MEDS ORDERED: SALINE NOSE SPR45 M1 (11:24)
[2017-01-14] MEDS ORDERED: SULFAMETHOXAZO1 EAC1 PO (11:30)
== END 2017-01-14 16:06 | disposition home health service (06) | DRG 189 ==
LOC: CED 09:59 → C5C 15:00 → C5B 15:00 → CED 20:21 → C5B 20:21 → C5C 01-11 19:27
PROVIDERS: Emergency Medicine; Internal Medicine
PROC: 02HV33Z Insertion of Infusion Device into Superior Vena Cava, Percutaneous Approach (ICD-10-PCS; principal; 2017-01-07)
PROC: B518YZA Fluoroscopy of Superior Vena Cava using Other Contrast, Guidance (ICD-10-PCS; 2017-01-07)
PROC: B548ZZA Ultrasonography of Superior Vena Cava, Guidance (ICD-10-PCS; 2017-01-07)
DX: J96.20 Acute and chronic respiratory failure, unspecified whether with hypoxia or hypercapnia (principal); T17.490A Other foreign object in trachea causing asphyxiation, initial encounter; B37.0 Candidal stomatitis; J44.0 Chronic obstructive pulmonary disease with (acute) lower respiratory infection; Z43.0 Encounter for attention to tracheostomy; J44.1 Chronic obstructive pulmonary disease with (acute) exacerbation; Z68.42 Body mass index [BMI] 45.0-49.9, adult; E66.01 Morbid (severe) obesity due to excess calories; J20.8 Acute bronchitis due to other specified organisms; G47.33 Obstructive sleep apnea (adult) (pediatric); I10 Essential (primary) hypertension; Z86.711 Personal history of pulmonary embolism; Z87.891 Personal history of nicotine dependence; Z79.82 Long term (current) use of aspirin; G25.81 Restless legs syndrome; R19.7 Diarrhea, unspecified
CPT/HCPCS: 36415; 71010; 71020; 76937; 77001; 80048; 82308; 82553; 82947; 84484; 85025; 85027; 85610; 85730; 87070; 87077; 87186; 87205; 93005; 94640; 94660; 94760; 96374; 99285; C1751; J1040; J1642; J1650; J1815; J2543; J2920